=== PATIENT | female | born 1990 | race African-American/Black ===

== ENCOUNTER 2020-06-22 13:38 | Emergency (ER) | payer OTHER ==
[2020-06-22 13:56] VITALS: TEMP 98.1
[2020-06-22] MEDS ORDERED: IBUPROFEN 600 MG TAB PO STA (14:22)
--- NOTE | 2020-06-22 14:32 | ED ---
Upper Extremity HPI - General Chief Complaint: Extremity Injury, Upper Stated Complaint: Right thumb injury Time Seen by Provider: 06/22/20 14:11 Source: patient Mode of arrival: ambulatory Limitations: no limitations - History of Present Illness Initial Comments: This is a 30-year-old female who states she had her right thumb slammed in a car door just prior to arrival . She does complain some pain to the area she states it did start leaking blood into the center of the nail bed. No other injury she did not take anything for pain. MD Complaint: Injury to:: right, finger - Related Data Previous Rx's Medication Instructions Recorded Ibuprofen [Motrin] 600 mg PO Q6HR PRN #20 tab 06/22/20 Allergies Allergy/AdvReac Type Severity Reaction Status Date / Time No Known Allergies Allergy Verified 06/22/20 13:56 Review of Systems ROS Statement: Those systems with pertinent positive or pertinent negative responses have been documented in the HPI. ROS Other: All systems not noted in ROS Statement are negative. Past Medical History Past Medical History: No Reported History History of Any Multi-Drug Resistant Organisms: None Reported Past Surgical History: Hysterectomy Past Psychological History: Depression Smoking Status: Current every day smoker Past Alcohol Use History: Occasional Past Drug Use History: Marijuana General Exam - General Exam Comments Initial Comments: This is a well-developed well-nourished awake alert oriented 2 female with a [place] Coma Scale of 15 Limitations: no limitations General appearance: alert, anxious Head exam: Present: atraumatic, normocephalic, normal inspection Eye exam: Present: normal appearance, PERRL, EOMI. Absent: scleral icterus, conjunctival injection, periorbital swelling Neck exam: Present: normal inspection Extremities exam: Present: full ROM, tenderness, normal capillary refill, other (Subungual hematoma noted over part of the nailbed the nail doesn't beer however to be intact no displacement or formed noted to the tip of the thumb no other injury noted.) Course Vital Signs 06/22/20 13:51 Temperature 98.1 F Pulse Rate 88 Respiratory 18 Rate Blood Pressure 109/77 O2 Sat by Pulse 100 Oximetry Medical Decision Making - Medical Decision Making I did discuss findings with the patient she demonstrates evidence of a contusion to the right thumb with subungual hematoma with spontaneous drainage. Be placed on pain medication I did recommend ice elevation and conservative manage ment at this time. - Radiology Data Radiology results: image reviewed (No acute fractures or foreign body seen.) Disposition Clinical Impression: Contusion of right thumb, Contusion of right thumb nail, Subungual hematoma of fingernail Disposition: HOME SELF-CARE Condition: Good Instructions (If sedation given, give patient instructions): Subungual Hematoma (ED), Contusion in Adults (ED) Prescriptions: Ibuprofen [Motrin] 600 mg PO Q6HR PRN #20 tab PRN Reason: Pain Is patient prescribed a controlled substance at d/c from ED?: No Referrals: None,Stated [Primary Care Provider] - 1-2 days
--- NOTE | 2020-06-22 15:15 | XR ---
EXAMINATION TYPE: XR hand complete RT DATE OF EXAM: 06/22/2020 CLINICAL HISTORY: Thumb trauma. Pain, bruising, swelling. Smashed first digit of right hand. TECHNIQUE: Frontal, lateral and oblique images of the right hand are obtained. COMPARISON: None. FINDINGS: There is no acute fracture/dislocation evident in the right hand. The joint spaces in the right hand appear within normal limits. The overlying soft tissue appears unremarkable. Normal osseo us mineralization. IMPRESSION: There is no acute fracture or dislocation in the right hand.
[2020-06-22 15:41] VITALS: BP 117/77; PULSE 75; RESP 16
[2020-06-22] MEDS ORDERED: ACET/COD 300 MG/30 MG STARTER PACK 6 TAB BTL PO STA (15:41)
== END 2020-06-22 15:49 | disposition home or self-care (01) ==
LOC: EC 13:38
DX: S60.111A Contusion of right thumb with damage to nail, initial encounter (principal); F17.200 Nicotine dependence, unspecified, uncomplicated; W23.0XXA Caught, crushed, jammed, or pinched between moving objects, initial encounter
CPT/HCPCS: 99283